=== PATIENT | female | born 1935 | race Caucasian/White ===

== ENCOUNTER 2016-11-20 23:04 | Inpatient (IN) | payer BC, SELFPAY ==
--- NOTE | ~2016-11-20 | HP ---
History And Physical [id number] [place]. [address] NAME: LISA ZUÑIGA : 35 STATUS : ADM IN [facility]#: [id number] AGE: 81 ADM/REG DATE : 11/21/16 MR#: [id number] REPORT SERV DATE: 11/21/16 DICTATED BY: MARCOS CLEMENTS DATE: 11/21/16 REPORT STATUS : Draft TRANSCRIBED BY: JONATHAN DATE: 11/21/16 DATE OF ADMISSION: 11/21/2016 POINT OF ENTRY: [facility] Emergency Department. PRIMARY ONCOLOGIST: Ulysses Estrada M.D. CHIEF COMPLAINT: Nausea, vomiting, diarrhea, and addisonian crisis. HISTORY OF PRESENT ILLNESS: Ms. Zuñiga is an 81-year-old female with history of Williams's disease, on chronic prednisone and Florinef, as well as hypothyroidism, hypertension, insulin-dependent diabetes mellitus type 2, as well as metastatic breast cancer, who presents to the emergency department today with reports of a two-day history of nausea, vomiting, and diarrhea as well as concerns for addisonian crisis. The patient states that she started to develop some GI symptoms of nausea, vomiting, as well as diarrhea on Tuesday evening. Her grand kids are currently having similar symptoms, and she felt as if she just caught the same GI bug that they had. Her symptoms continued on Tuesday. She was unable to keep down any of her medications on Tuesday, and come Tuesday evening, she started to feel as if she was going into an addisonian crisis with worsening fatigue, weakness, as well as continued nausea and vomiting which is her typical addisonian crisis symptoms. She denied any fevers, night sweats, chills, chest pain, shortness of breath, dysuria, melena, hematochezia, hemoptysis, or hematemesis. She states she does have some abdominal pain; however, it is difficult to determine if this is a new symptom as she does have a history of metastatic breast cancer including metastases to her ribcage. REVIEW OF SYSTEMS: A comprehensive review of system is otherwise negative unless listed in history of present illness. Initial evaluation in the emergency department for blood pressure that was 173/79. She was afebrile. Vital signs were stable. Labs were notable for a mild hyponatremia of 129 and a sugar of 236. She was given 4 mg of Decadron as well as some IV fluids and admitted to the Hospitalist Service for further evaluation and management. PREVIOUS MEDICAL HISTORY: 1. José's disease, on chronic Florinef and prednisone. 2. Hypertension. 3. Insulin-dependent diabetes mellitus type 2. 4. Hypothyroidism. 5. Chronic pain, on chronic narcotics. 6. CKD 3. 7. Metastatic breast cancer with known metastases to the bone. History And Physical [address] [address] NAME: LISA ZUÑIGA : 35 STATUS : ADM IN PAT#: [id number] AGE: 81 ADM/REG DATE : 11/21/16 MR#: [id number] REPORT SERV DATE: 11/21/16 DICTATED BY: MARCOS CLEMENTS DATE: 11/21/16 REPORT STATUS : Draft TRANSCRIBED BY: JONATHAN DATE: 11/21/16 PAST SURGICAL HISTORY: Tonsillectomy. ALLERGIES: NONE. HOME MEDICATIONS: 1. Norvasc 2.5 mg daily. 2. Vitamin D 4000 units daily. 3. Florinef 0.1 mg daily. 4. Ibuprofen 400 mg b.i.d. p.r.n. 5. Insulin sliding scale. 6. Lantus 47 units at bedtime. 7. Letrozole 2.5 mg daily. 8. Levothyroxine 75 mcg daily. 9. Prednisone 5 mg daily. 10.Ibrance. 11.Valsartan/hydrochlorothiazide 160/12.5 one tablet daily. SOCIAL HISTORY: Denies any tobacco, alcohol, or illicits. FAMILY MEDICAL HISTORY: Mother with history of stroke. Father with alcoholism and liver cancer. Sibling with history of suicide. LABS AND IMAGIN. White count is 2.5, hemoglobin is 13.6, hematocrit is 36.7, platelet count is 111, and MCV is 103.1. 2. Sodium 129, potassium 4.0, chloride 98, carbon dioxide 28, BUN 19, creatinine 1.39, glucose 236, calcium 9.2, protein 6.4, albumin 3.1, bilirubin 1.4, ALT 30, AST 27, and alkaline phosphatase 60. 3. Lipase is 69. 4. Urinalysis, specific gravity is 1.019, small leukocyte esterase with 56 white blood cells per high-powered field. PHYSICAL EXAMINATION: VITAL SIGNS: Temperature is 97.4 degrees Fahrenheit, pulse is 84, respirations are 18, saturating 94% on room air, and blood pressure is 173/79. On recheck, blood pressure is now 119/63, pulse is 75, saturating 92% on room air. GENERAL: The patient is awake, alert, and in no acute distress. Resting comfortably. She is a chronically ill-appearing somewhat cushingoid-appearing female. HEENT: Atraumatic and normocephalic. Slightly dry mucous membranes. Pupils are equal, round, and reactive to light and accommodation. Extraocular eye movements intact. No scleral icterus. NECK: No jugular venous distention. No carotid bruits. CARDIAC: Regular rate and rhythm. No murmurs, rubs, or gallops. Normal S1, S2. LUNGS: Clear to auscultation bilaterally. No wheezes, rhonchi, or crackles. ABDOMEN: Obese, soft, nontender, and nondistended. Good bowel sounds. No rebound, guarding, or rigidity. EXTREMITIES: Warm and perfused. No cyanosis, clubbing, or edema. SKIN: Warm and dry. History And Physical [address] [address] NAME: LISA ZUÑIGA : 35 STATUS : ADM IN [facility]#: [id number] AGE: 81 ADM/REG DATE : 11/21/16 MR#: [id number] REPORT SERV DATE: 11/21/16 DICTATED BY: MARCOS CLEMENTS DATE: 11/21/16 REPORT STATUS : Draft TRANSCRIBED BY: JONATHAN DATE: 11/21/16 PSYCHIATRIC: Affect appropriate. NEUROLOGIC: Alert and oriented x3. Cranial nerves 2 through 12 grossly intact. Speech is normal. Gait not assessed. ASSESSMENT: Ms. Zuñiga is an 81-year-old female, who has a history of Williams's disease, who presents with two days of GI complaints, and found to be in addisonian crisis. PROBLEM LIST: 1. Addisonian crisis. 2. Urinary tract infection. 3. Nausea, vomiting, and diarrhea, likely gastroenteritis. 4. Insulin-dependent diabetes mellitus type 2 with hyperglycemia. 5. Hyponatremia. 6. Hypothyroidism. PLAN: 1. Addisonian crisis. She received 4 mg of IV Decadron here in the emergency department as well as some IV fluids. We will continue IV fluid hydration and switch her over to IV hydrocortisone at 50 mg q.6 hours. 2. Urinary tract infection. Follow up urine culture. IV Rocephin. 3. Nausea, vomiting, and diarrhea, likely gastroenteritis, provide supportive care. 4. Insulin-dependent diabetes mellitus type 2 with hyperglycemia, continue the patient's home long-acting insulin, place her on a level 2 sliding scale. 5. Hyponatremia, continue IV fluids as well as hydrocortisone. 6. Hypothyroidism, checking thyroid function studies. 7. DVT prophylaxis, Lovenox subcu. CODE STATUS: The patient wishes to be full code. JCB/MODL Marcos Clements MD / [id number] CC: Klaudia Penny NP Edward Arrowsmith, M.D.
--- NOTE | ~2016-11-20 | DS ---
Discharge Summary [facility] [address] [place]. [address] NAME: LIAS EDWARDS : 35 STATUS : DIS IN PAT#: [id number] AGE: 81 ADM/REG DATE : 11/21/16 MR#: [id number] REPORT SERV DATE: 11/24/16 DICTATED BY: SAWYER ROSARIO DATE: 11/24/16 REPORT STATUS : Draft TRANSCRIBED BY: MODJoshua DATE: 11/24/16 ADMISSION DATE: 11/21/2016 DISCHARGE DATE: DISCHARGE DIAGNOSES: 1. Gastroenteritis. 2. Addisonian crisis. 3. Hypokalemia, now resolving. 4. Hypertension. 5. Type 2 diabetes mellitus. 6. Breast cancer on therapy by Dr. Estrada. 7. Hypothyroidism. CONSULTANTS DURING THIS HOSPITALIZATION: None. INVASIVE PROCEDURES DONE DURING THIS HOSPITALIZATION: None. BRIEF HISTORY OF PRESENT ILLNESS: The patient is an 81-year-old female presented with diarrhea, nausea, and vomiting. So she was admitted. For detailed history and physical exam, please see note dictated by Dr. Gray on 11/21/2016. HOSPITAL COURSE: After being admitted to the hospital, this patient was given copious amounts of IV fluids that seemed to have increased her salt retention and caused significant elevation in her blood pressure. She was given IV stress dose of steroids as well and this seemed to have added to her increase in blood pressure as well. She was never actually hypotensive. We have discontinued her IV fluids. She is tolerating a diet. Her diarrhea has significantly improved. She denies any further nausea or vomiting. She denies any fevers or chills. Her potassium is slightly low at about 2.9 which will be replaced through her IV. At this time, she feels well enough that she wants to go home and recover in the home setting and follow up in the outpatient setting. DISCHARGE DISPOSITION: Home. DISCHARGE ACTIVITY: As tolerated. DISCHARGE DIET: 1800-calorie [employer] diet. DISCHARGE MEDICATIONS: Norvasc 2.5 mg one tablet daily, vitamin D 4000 units once daily, Florinef 0.4 mg p.o. at breakfast, NovoLog sliding scale per home regimen, Lantus 47 units subcu at bedtime, Femara 2.5 mg once daily, levothyroxine 75 mcg once daily, prednisone 5 mg once every morning, Diovan HCT 160/12.5 mg once every morning, Ibrance as directed. DISCHARGE FOLLOWUP: With Dr. Ulysses Estrada as scheduled and with Jesica Ordoñez. About 30 minutes spent planning this patient's discharge, reconciling medications, discussing hospital care, and follow up with the patient and documenting this discharge. Discharge Summary [place] [place] [address] NAME: LISA EDWARDS : 35 STATUS : DIS IN PAT#: [id number] AGE: 81 ADM/REG DATE : 11/21/16 MR#: [id number] REPORT SERV DATE: 11/24/16 DICTATED BY: SAWYER ROSARIO DATE: 11/24/16 REPORT STATUS : Draft TRANSCRIBED BY: JONATHAN DATE: 11/24/16 SV/JONATHAN Sawyer Rosario M.D. / [id number] CC: Klaudia Love M.D. Brancy Biederman, NP
[~2016-11-20 23:04] MED LIST: ADVIL PO; BIST PO; DIOVAN HC1 PO; ENULOSE PO; FLORINEF0.1 MG PO; LANTUS SC; MAGIC MOUTHWASH; NORV25 PO; NOVOLOG SC; P5 PO; PRILO PO; SYN075 PO; VITAMIN D31000 UNIT PO; ZOFRANODT8 PO
[2016-11-21 00:22] LABS: HEMOGLOBIN 13.6 g/dL (12.0-16.0); MEAN CORPUS HGB CONC 37.1 g/dL (32.0-36.0)
[2016-11-21 00:39] LABS: A/G RATIO 0.9 (0.7-1.9); ALBUMIN 3.1 G/DL (3.5-5.0); ALKALINE PHOSPHATASE 60 U/L (45-117); BUN (BLOOD UREA NITROGEN) 19 MG/DL (6-23); CALCIUM, SERUM 9.2 MG/DL (8.5-10.4); CHLORIDE, SERUM 91 MMOL/L (96-112); CO2 (CARBON DIOXIDE) 28 MMOL/L (24-34); CREATININE 1.39 MG/DL (0.55-1.02); GFR AFRICAN AMERICAN 41 ML/MIN (>=60); GFR NON AFRICAN AMERICAN 35 ML/MIN (>=60); GLOBULIN 3.3 G/DL (2.5-4.1); GLUCOSE, SERUM 236 MG/DL (60-99); SGOT(AST) 27 U/L (5-40); SGPT(ALT) 30 U/L (5-65); SODIUM, SERUM 129 MMOL/L (135-148); TOTAL BILIRUBIN 1.4 MG/DL (0-1.2); TOTAL PROTEIN 6.4 G/DL (6.0-8.5)
[2016-11-21 00:40] LABS: ER CBC TAT 0 Hrs 21 Mins; HEMATOCRIT 36.7 % (36.0-48.0); MANUAL DIFF YES %; MEAN CORPUSCULAR HEMOGLOB 38.2 pg (26.0-34.0); MEAN CORPUSCULAR VOLUME 103.1 fL (80-100); PLATELET COUNT 111 10/3/uL (150-400); RBC DISTRIBUTION WIDTH 15.2 % (12.0-16.0); RED CELL COUNT 3.56 10/6/uL (4.0-5.6); WHITE BLOOD CELLS 2.5 10/3/uL (4.5-10.5)
[2016-11-21 01:19] LABS: EOSINOPHILS 1 %; EOSINOPHILS ABSOLUTE (CALC) 0.03 10/3/uL (0.0-0.53); ER DIFF TAT 1 Hrs 00 Mins; LYMPHOCYTES 21 %; LYMPHOCYTES ABSOLUTE (CALC) 0.53 10/3/uL (0.67-4.30); MONOCYTES 1 %; MONOCYTES ABSOLUTE (CALC) 0.03 10/3/uL (0.21-1.20); NEUTROPHILS ABSOLUTE (CALC) 1.93 10/3/uL (2.02-8.40); PLATELET ESTIMATE SLT DEC (ADEQUATE); SEGMENTED NEUTROPHIL (0) 77 %; TOTAL NUCLEATED CELLS 100
[2016-11-21 01:20] LABS: RBC MORPHOLOGY NORM (NORMAL)
[2016-11-21 01:22] LABS: ASCORBIC ACID (UR NOT ORDER) NEG (NEG); BILIRUBIN, URINE NEGATIVE (NEG); ER URINALYSIS TAT 0 Hrs 00 Mins; KETONE, URINE 20 MG/DL (NEG); LEUKOCYTE ESTERASE(NOT OR SMALL (NEG); NITRITE (URINE) NEG (NEG); WBC (NOT ORDERED) (RFLEX) 56 (0-5)
[2016-11-21] MEDS ORDERED: FEMARA PO (03:05)
[2016-11-21] MEDS ORDERED: IBRANCE (03:07)
[2016-11-21 07:12] LABS: BASOPHILS 0.4 %; BASOPHILS ABSOLUTE 0.01 10/3/uL (0.0-0.16); EOSINOPHILS 0 %; HEMATOCRIT 34.8 % (36.0-48.0); IMMATURE GRANULOCYTES 0.4 %; IMMATURE GRANULOCYTES ABSOLUTE 0.01 10/3/uL (0.0-0.11); LYMPHOCYTES 10.1 %; LYMPHOCYTES ABSOLUTE 0.27 10/3/uL (0.67-4.30); MEAN CORPUS HGB CONC 37.4 g/dL (32.0-36.0); MEAN CORPUSCULAR HEMOGLOB 38.5 pg (26.0-34.0); MEAN PLATELET VOLUME 10.7 fL (9.2-13.0); MONOCYTES 1.5 %; MONOCYTES ABSOLUTE 0.04 10/3/uL (0.21-1.20); NEUTROPHILS 87.6 %; NEUTROPHILS ABSOLUTE 2.34 10/3/uL (2.02-8.40); PLATELET COUNT 88 10/3/uL (150-400); RED CELL COUNT 3.38 10/6/uL (4.0-5.6); WHITE BLOOD CELLS 2.7 10/3/uL (4.5-10.5)
[2016-11-21 07:16] LABS: MANUAL DIFF NO %
[2016-11-21 07:37] LABS: BUN (BLOOD UREA NITROGEN) 19 MG/DL (6-23); CALCIUM, SERUM 8.5 MG/DL (8.5-10.4); CHLORIDE, SERUM 96 MMOL/L (96-112); CREATININE 1.23 MG/DL (0.55-1.02); FREE T4 1.62 NG/DL (0.76-1.46); GFR AFRICAN AMERICAN 48 ML/MIN (>=60); GFR NON AFRICAN AMERICAN 41 ML/MIN (>=60); POTASSIUM, SERUM 3.9 MMOL/L (3.5-5.3); SODIUM, SERUM 130 MMOL/L (135-148); ULTRASENSITIVE TSH 0.989 MCIU/ML (0.358-3.740)
[2016-11-21 07:39] LABS: CO2 (CARBON DIOXIDE) 22 MMOL/L (24-34); GLUCOSE, SERUM 338 MG/DL (60-99)
[2016-11-21 07:49] LABS: PLATELET ESTIMATE DEC (ADEQUATE)
[2016-11-21 07:50] LABS: GIANT PLATELET OCC; MACROCYTES 1+ (5-10/OIF) (0-5/OIF); POLYCHROMASIA 1+ (2-5/OIF) (0-1/OIF)
[2016-11-22 06:34] LABS: BASOPHILS 0 %; EOSINOPHILS 0 %; IMMATURE GRANULOCYTES 0.4 %; IMMATURE GRANULOCYTES ABSOLUTE 0.02 10/3/uL (0.0-0.11); LYMPHOCYTES 7.4 %; LYMPHOCYTES ABSOLUTE 0.34 10/3/uL (0.67-4.30); MEAN CORPUS HGB CONC 36.2 g/dL (32.0-36.0); MEAN CORPUSCULAR HEMOGLOB 37.3 pg (26.0-34.0); MEAN CORPUSCULAR VOLUME 103.1 fL (80-100); MEAN PLATELET VOLUME 10.5 fL (9.2-13.0); MONOCYTES 4.1 %; MONOCYTES ABSOLUTE 0.19 10/3/uL (0.21-1.20); NEUTROPHILS 88.1 %; NEUTROPHILS ABSOLUTE 4.04 10/3/uL (2.02-8.40); PLATELET COUNT 107 10/3/uL (150-400); RBC DISTRIBUTION WIDTH 14.9 % (12.0-16.0); RED CELL COUNT 2.95 10/6/uL (4.0-5.6)
[2016-11-22 06:35] LABS: HEMATOCRIT 30.4 % (36.0-48.0); MANUAL DIFF NO %; WHITE BLOOD CELLS 4.6 10/3/uL (4.5-10.5)
[2016-11-22 06:43] LABS: CALCIUM, SERUM 8.2 MG/DL (8.5-10.4); CHLORIDE, SERUM 107 MMOL/L (96-112); CO2 (CARBON DIOXIDE) 24 MMOL/L (24-34); CREATININE 1.31 MG/DL (0.55-1.02); GFR AFRICAN AMERICAN 44 ML/MIN (>=60); GFR NON AFRICAN AMERICAN 38 ML/MIN (>=60); POTASSIUM, SERUM 3.8 MMOL/L (3.5-5.3)
[2016-11-22 06:44] LABS: BUN (BLOOD UREA NITROGEN) 29 MG/DL (6-23); GLUCOSE, SERUM 203 MG/DL (60-99); SODIUM, SERUM 139 MMOL/L (135-148)
[2016-11-24 06:33] LABS: ALBUMIN 2.6 G/DL (3.5-5.0); CALCIUM, SERUM 7.8 MG/DL (8.5-10.4); CHLORIDE, SERUM 110 MMOL/L (96-112); CO2 (CARBON DIOXIDE) 23 MMOL/L (24-34); CREATININE 0.84 MG/DL (0.55-1.02); GFR AFRICAN AMERICAN 76 ML/MIN (>=60); GFR NON AFRICAN AMERICAN 65 ML/MIN (>=60); PHOSPHORUS, SERUM 1.3 MG/DL (2.5-4.5); SODIUM, SERUM 143 MMOL/L (135-148)
[2016-11-24 06:34] LABS: BUN (BLOOD UREA NITROGEN) 13 MG/DL (6-23); GLUCOSE, SERUM 106 MG/DL (60-99); POTASSIUM, SERUM 2.9 MMOL/L (3.5-5.3)
== END 2016-11-24 11:55 | disposition home or self-care (01) | DRG 644 ==
LOC: ER 23:04 → 4SO 11-21 04:07
PROVIDERS: Emergency Medicine; Internal Medicine
DX: E27.2 Addisonian crisis (principal); E87.1 Hypo-osmolality and hyponatremia; C79.51 Secondary malignant neoplasm of bone; N18.3 Chronic kidney disease, stage 3 (moderate); E11.22 Type 2 diabetes mellitus with diabetic chronic kidney disease; E11.65 Type 2 diabetes mellitus with hyperglycemia; N39.0 Urinary tract infection, site not specified; Z79.52 Long term (current) use of systemic steroids; E03.9 Hypothyroidism, unspecified; Z79.4 Long term (current) use of insulin; Z85.3 Personal history of malignant neoplasm of breast; G89.29 Other chronic pain; I12.9 Hypertensive chronic kidney disease with stage 1 through stage 4 chronic kidney disease, or unspecified chronic kidney disease; K52.9 Noninfective gastroenteritis and colitis, unspecified; E87.6 Hypokalemia
CPT/HCPCS: 80048; 80053; 80069; 81001; 82962; 83036; 83605; 83690; 84439; 84443; 85025; 87040; 87086; 96374; 96375; 99284; A9270-GY; J0360; J1720; J2405